=== PATIENT | female | born 2000 | race Hispanic/Latino ===

== ENCOUNTER 2019-03-20 21:50 | Day surgery (SDC) | payer OTHER ==
[2019-03-20 22:21] VITALS: BP 108/67; TEMP 98.9; BMI 19.1
--- NOTE | 2019-03-21 00:26 | PDOC.LDHP ---
Labor and Delivery H&P Chief complaint: decreased movement HPI: 18 yo G1 at 25.0 by LMP here with complaint of decreased movement for a 4 hour period while driving back from [place]. She denies associated bleeding, discharge, cramping, LOF. She states that she tried eating and drinking, but without result of movement. Current gestational age (weeks): 25 Dating criteria: last menstrual period Grav: 1 Para: 0 Current complications: none Abnormal US findings: No Current medications: pre-gregor vitamins Allergies/Adverse Reactions: Allergies Allergy/AdvReac Type Severity Reaction Status Date / Time No Known Allergies Allergy Verified 03/20/19 22:18 Social history: none - Physical Exam Vital signs reviewed and normal: yes General: NAD Heart: RRR Lungs: CTAB Abdomen: gravid Extremeties: no edema FHT: category 1 [place] contractions every: rare - OB Labs Blood type: unknown RH: unknown Antibody Screen: unknown HIV: unknown RPR: unknown HEPSAg: unknown 1 hour GCT: unknown GBS: unknown - Assessment 2T , not in labor. Normal strip. - Plan -: FHT is WNL, no decelerations. While being monitored movement was noted by mother. Plan to dc home. Return precautions given. Follow up as scheduled with Dr Solitario next week. Addendum - Attending - Attending Attestation Date/Time: 03/21/19 6858 I personally evaluated the patient and discussed the management with Dr. Saucedo. I agree with the History, Examination, Assessment and Plan documented above.
== END 2019-03-20 23:20 | disposition home or self-care (01) ==
LOC: L&D/OP 21:50
PROVIDERS: ATTEND Obstetrics & Gynecology
DX: O36.8120 Decreased fetal movements, second trimester, not applicable or unspecified (principal); Z3A.25 25 weeks gestation of pregnancy

== ENCOUNTER 2019-06-28 12:26 | Inpatient (IN) | payer OTHER ==
[2019-06-28] MEDS ORDERED: Butorphanol Tartrate 1 MG/ML VIAL SLOW IVP PRN (13:05)
[2019-06-28] MEDS ORDERED: hydrALAZINE 20 MG/ML VIAL SLOW IVP PRN (13:05)
[2019-06-28] MEDS ORDERED: Promethazine HCl 25 MG/ML VIAL IM PRN ×3 (13:05→21:58)
[2019-06-28] MEDS ORDERED: Ondansetron PF 4 MG/2 ML Vial IVP PRN ×3 (13:05→21:58)
[2019-06-28 13:31] VITALS: BMI 21.7
--- NOTE | 2019-06-28 13:34 | PDOC.FPROB ---
FMR OB H&P: HPI - History of Present Illness Chief Complaint: CTX Indentification: G1 History of Present Illness: Patient is a 19 y/o G1 female at 39.2W EGA by 1st Trimester US who presents to L&D for evaluation of suspected contractions. She states that the contractions began earlier this morning and have increased in intensity and frequency, occurring Q2-4M at the time of presentation. Patient denies any loss of movement or loss of fluids, as well as any recent trauma, dysuria, illness or sick contacts, LEWIS, visual disturbances, N/V, CP, SOB or peripheral edema. Patient states that her course has been unremarkable and that she has had consistent care. Primary Care Physician: [facility] - Krista Solitario MD FMR OB H&P: Current - Care : 1 Para: 0 Gestational age: 39.2 Due date: 07/03/2019 Dating Criteria: LMP c/w 9.5 wk sono - OB Labs Blood type: O RH: positive Antibody Screen: negative HIV: negative RPR: negative HepBsAg: negative Rubella: immune Gonorrhea: negative Chlamydia: negative 1 hour gtt: 110 GBS: negative FMR OB H&P: History - Past Medical History PMH: None - OB History OB History: Anemia of - Surgical History Sx History: None - Social History Social History: Denies x3 - Family History Family History: Mother (HTN) - No Hx of DM2 FMR OB H&P: Medications - Current Home Medications: Medication Instructions Recorded Confirmed Type No Known 03/20/19 06/29/19 History Allergies/Adverse Reactions: Allergies Allergy/AdvReac Type Severity Reaction Status Date / Time No Known Allergies Allergy Verified 03/20/19 22:18 FMR OB H&P: ROS - Review of Systems General: denies: fever/chills Eyes: denies: vision changes ENT: denies: rhinorrhea, frequent nose bleed Cardiovascular: denies: chest pain, edema Respiratory: denies: cough, shortness of breath Gastrointestinal: denies: nausea, vomiting, diarrhea, constipation Genitourinary (Female): reports: contractions. denies: dysuria, hematuria, vaginal discharge Neurologic: denies: syncope, loss of counsciousness, headache Integumentary: denies: itching, lesions Psychological: reports: anxiety FMR OB H&P: Vital Signs - Heart Tones Baseline: 150 Variability: moderate Acceleration: absent Deceleration: absent Category: category 1 [place] contractions every: 2-3 min FMR OB H&P: Physical Exam - Physical Exam General: other (Breathing through contractions) HEENT: normocephalic and atraumatic, PERRLA, EOMI, MMM, conjunctiva clear, no scleral icterus, grossly normal vision, grossly normal hearing, normal nasal mucosa, oropharynx clear Neck: supple, FROM, trachea midline, no LAD Chest: non-tender to palpation, no lesions Breast: symmetric Heart: RRR, normal S1/S2, no murmurs/rubs/gallops, pulses present, no edema General: CTAB, no respiratory distress, good air movement, no rales/rhonchi, no wheezing, no retractions Abdomen: gravid, non-tender, no masses Musculoskeletal: pulses present, FROM in all four extremities, no misalignment/ asymmetry Neurological: no tremor, no focal deficit Skin: no rash, no jaundice Lymphatic: no unusual bruising or bleeding, no purpura, no petechia Psychiatric: intact recent and remote memory, normal mood and affect - Pelvic Exam SVE: Presentation: Vertex FMR OB H&P: A/P - Problem List (1) Intrauterine Current Visit: Yes Status: Acute Code(s): Z34.90 - ENCNTR FOR SUPRVSN OF NORMAL , UNSP, UNSP TRIMESTER Disposition: Patient is a 19 y/o G1 who presents to L&D for evaluation of contractions. 1. SIUP, Active Labor -Unremarkable course -GBS: Negative -Maternal VSS -Contractions Q2-4M -Category 1 Strip, no evidence of decelerations -SVE (1300) -Vertex presentation confirmed via bedside US -Patient desires epidural - Anesthesia notified 2. Anemia of -Labs pending PCP: [facility] - Krista Solitario MD Diet: NPO Fluids: LR @ 125 ml/hr Dispo: Patient is currently stable and admitted to L&D for active management of labor. Continue with maternal and monitoring and perform SVE Q2H. Discussion: Date/Time: 06/28/19 8099 This H&P was discussed with [] and [] who agree with the above documentation and plan. Addendum - Attending - Attending Attestation Date/Time: 06/29/19 0804 I personally evaluated the patient and discussed the management with Dr. Harman yesterday afternoon. I agree with the History, Examination, Assessment and Plan documented above with any addition or exceptions noted below.
[2019-06-28 13:41] LABS: Hemoglobin 11.8 g/dL (12.0-16.0); Mean Corpuscular HGB CONC 33.9 g/dL (32.0-36.0); Mean Corpuscular Hemoglobin 26.9 pg (27.0-31.0); Mean Corpuscular Volume 79.3 fL (78.0-98.0); Mean Platelet Volume 8.8 fL (7.4-10.4); Platelet Count 252 thou/uL (130-400); RBC Distribution Width 13.8 % (11.5-14.5); Red Blood Cell (RBC) Count 4.39 mill/uL (4.20-5.40); White Blood Cell (WBC) Count 13.6 thou/uL (4.8-10.8)
[2019-06-28] MEDS ORDERED: Fentanyl 4 mcg/Bup 0.1% Cadd 100 ML ONE (14:07)
[2019-06-28 14:25] LABS: HBSAg Index 0.28 S/CO (0-0.99); Hep B Surf Ag Non-Reactive S/CO (NonReactive)
[2019-06-28 14:30] LABS: Syphilis Antibody Nonreactive (Nonreactive); Syphilis Antibody Index 0.06 S/CO (<1.00 Non-Reactive)
[2019-06-28] MEDS ORDERED: Lactated Ringer's 500 ML IV PRN (14:48)
[2019-06-28] MEDS ORDERED: Acetaminophen 325 MG TAB PO PRN (14:48)
[2019-06-28] MEDS ORDERED: EPHEDRINE 25 MG/5 ML SYRINGE SLOW IVP PRN (14:48)
[2019-06-28] MEDS ORDERED: Naloxone HCl 0.4 mg/ml Vial IVP PRN ×4 (14:48→21:58)
[2019-06-28] MEDS ORDERED: diphenhydrAMINE 50 MG/ML VIAL IVP PRN ×2 (14:48→21:58)
[2019-06-28] MEDS ORDERED: Communication Order-Pharmacy FS SCH ×2 (15:00→22:00)
[2019-06-28] MEDS ORDERED: Fentanyl 4 mcg/Bupivacaine 0.1% Cassette 100 ML EPIDURAL SCH (15:00)
--- NOTE | 2019-06-28 15:26 | PDOC.LDPN ---
Labor & Delivery Progress Note - Subjective Subjective: comfortable - Objective Vital signs reviewed and normal: yes General: NAD Uterine fundus: non tender SVE: 1515 Dilation: 6 Effacement: 75% Station: 0 FHT: category 1 [place] contractions every: Q3M - Assessment (1) Intrauterine Code(s): Z34.90 - ENCNTR FOR SUPRVSN OF NORMAL , UNSP, UNSP TRIMESTER Current Visit: Yes Status: Acute Plan: continue plan of care -: Labor Check - 1515 Patient is a 19 y/o G1 who presents to L&D for evaluation of contractions. 1. SIUP, Active Labor -Unremarkable course -GBS: Negative -Maternal VSS -Contractions Q3M -Category 1 Strip, no evidence of decelerations -Membranes intact -SVE (1300): 680/0 -SVE (1515): 6/80/0 -Vertex presentation confirmed via bedside US -Epidural in place - pain is currently well-controlled 2. Anemia of -Labs pending PCP: [facility] - Krista Solitario MD Diet: NPO Fluids: LR @ 125 ml/hr Dispo: Patient is currently stable and admitted to L&D for active management of labor. Continue with maternal and monitoring and perform SVE Q2H. Addendum - Attending - Attending Attestation Date/Time: 06/29/19 4453 I personally evaluated the patient and discussed the management with Dr. Harman yesterday afternoon. I agree with the History, Examination, Assessment and Plan documented above with any addition or exceptions noted below.
--- NOTE | 2019-06-28 17:00 | PDOC.LDPN ---
Labor & Delivery Progress Note - Subjective Subjective: comfortable - Objective Vital signs reviewed and normal: yes General: NAD, resting Uterine fundus: non tender Dilation: 7 Effacement: 75% Station: 0 FHT: category 1, late decelerations (3 Late Decelerations within past 60M - resolved following repositioning and fluid bolus), variability present [place] contractions every: 3-5M AROM: clear fluid - Assessment (1) Intrauterine Code(s): Z34.90 - ENCNTR FOR SUPRVSN OF NORMAL , UNSP, UNSP TRIMESTER Current Visit: Yes Status: Acute Plan: continue plan of care, other -: Labor Check - 1700 Patient is a 19 y/o G1 who presents to L&D for evaluation of contractions. 1. SIUP, Active Labor -Unremarkable course -GBS: Negative -Maternal VSS -Contractions Q3-5M -Category 1 Strip - several remote late decelerations that resolved w/ repositioning and fluid bolus -AROM (1700): Clear fluid, no evidence of cord prolapse -SVE (1300): 6/80/0 -SVE (1515): 6/80/0 -SVE (1700): 7/80/0 -Vertex presentation confirmed via bedside US -Epidural in place - pain is currently well-controlled 2. Anemia of -Labs pending PCP: [facility] - Krista Solitario MD Diet: NPO Fluids: LR @ 125 ml/hr Dispo: Patient is currently stable and admitted to L&D for active management of labor following successful AROM. Continue with maternal and monitoring and perform SVE Q2H. Expected LOS > 48H Addendum - Attending - Attending Attestation Date/Time: 06/29/19 4493 I personally evaluated the patient and discussed the management with Dr. Harman yesterday afternoon. I agree with the History, Examination, Assessment and Plan documented above with any addition or exceptions noted below.
--- NOTE | 2019-06-28 20:18 | PDOC.LDPN ---
Labor & Delivery Progress Note - Subjective Subjective: comfortable - Objective Vital signs reviewed and normal: yes General: NAD, resting, breathing through contractions Uterine fundus: non tender SVE: 8/100/-1 @ 1830 Dilation: 8 Effacement: 100% Station: -1 FHT: late decelerations (position changes to right lateral & IVF bolus of 300 mL NS given) [place] contractions every: 2 min Resuscitative measures: maternal IV fluids, maternal position change - Assessment (1) Intrauterine Code(s): Z34.90 - ENCNTR FOR SUPRVSN OF NORMAL , UNSP, UNSP TRIMESTER Current Visit: Yes Status: Acute Plan: continue plan of care, resuscitative measures -: Labor Check - 1829 Patient is a 19 y/o G1 who presents to L&D for evaluation of contractions. 1. SIUP, Active Labor -Unremarkable course -GBS: Negative -Maternal VSS -Contractions Q2-3M -Category 1 Strip - 3 recurrent late decelerations that resolved w/ repositioning and fluid bolus -will continue to monitor strip closely with next check in about 1 hour -discussed next steps with patient including C/S if late decelerations recur and not responsive to resuscitative measures -AROM (1700): Clear fluid, no evidence of cord prolapse -SVE (1300): 6/80/0 -SVE (1515): 6/80/0 -SVE (1700): 7/80/0 -SVE (1830): 8/100/-1 -Vertex presentation confirmed via bedside US -Epidural in place - pain is currently well-controlled 2. Anemia of -H/H 11.8/34.8 PCP: LESVIA Solitario MD Diet: NPO Fluids: LR @ 125 ml/hr Dispo: Patient is currently stable and admitted to L&D for active management of labor following successful AROM. Continue with maternal and monitoring and perform next SVE in about 1 hour. Expected LOS > 48H. Addendum - Attending - Attending Attestation Date/Time: 06/28/192133 I personally evaluated the patient and discussed the management with Dr. Zhou and team. I agree with the History, Examination, Assessment and Plan documented above with any addition or exceptions noted below.
--- NOTE | 2019-06-28 20:24 | PDOC.LDPN ---
Labor & Delivery Progress Note - Subjective Subjective: comfortable - Objective Vital signs reviewed and normal: yes General: NAD, resting, breathing through contractions Uterine fundus: non tender SVE: 10 with anterior lip/100/+1 Dilation: 10 (anterior lip) Effacement: 100% Station: 1+ FHT: category 1, late decelerations, variability present [place] contractions every: 2 min Other exam findings: bloody show with check Resuscitative measures: maternal oxygen, maternal IV fluids, maternal position change - Assessment (1) Intrauterine Code(s): Z34.90 - ENCNTR FOR SUPRVSN OF NORMAL , UNSP, UNSP TRIMESTER Current Visit: Yes Status: Acute Plan: continue plan of care, resuscitative measures -: Labor Check - 1944 Patient is a 19 y/o G1 who presents to L&D for evaluation of contractions. 1. SIUP, Active Labor -Unremarkable course -GBS: Negative -Maternal VSS -Contractions Q2-3M -Category 1 Strip - 1 late decelerations that resolved w/ repositioning to right lateral and applying maternal oxygen -will continue to monitor strip closely with next check in about 30-60 min -discussed next steps with patient including C/S if late decelerations recur and not responsive to resuscitative measures -AROM (1700): Clear fluid, no evidence of cord prolapse -SVE (1300): 6/80/0 -SVE (1515): 6/80/0 -SVE (1700): 7/80/0 -SVE (1830): 8/100/-1 -SVE (1944): 10/100/+1 slight anterior lip on exam, placed patient sitting upright (as long as baby tolerates) -Vertex presentation confirmed via bedside US -Epidural in place - pain is currently well-controlled 2. Anemia of -H/H 11.8/34.8 PCP: LESVIA Solitario MD Diet: NPO Fluids: LR @ 125 ml/hr Dispo: Patient is currently stable and admitted to L&D for active management of labor following successful AROM. Continue with maternal and monitoring and perform next SVE in about 30-60 min. Expected LOS > 48H. Addendum - Attending - Attending Attestation Date/Time: 06/28/19 2892 I personally evaluated the patient and discussed the management with Dr. Zhou. I agree with the History, Examination, Assessment and Plan documented above with any addition or exceptions noted below. See my next note.
[2019-06-28] MEDS ORDERED: NS / Oxytocin 40 units/1000ml 1,000 ML ONE (21:15)
[2019-06-28] MEDS ORDERED: Lidocaine 1% (PF) 30 ML VIAL ONE (21:15)
[2019-06-28] MEDS ORDERED: Bicitra 30 ML UDCUP ONE (21:49)
[2019-06-28] MEDS ORDERED: Promethazine HCl 25 MG SUPP PR PRN (21:58)
[2019-06-28] MEDS ORDERED: Ondansetron HCl/PF 4 MG/2 ML Vial IVP PRN (21:58)
[2019-06-28] MEDS ORDERED: Meperidine HCl/PF 25 MG/ML VIAL SLOW IVP PRN (21:58)
[2019-06-28] MEDS ORDERED: L&D-Morphine 4 MG/ML VIAL SLOW IVP PRN (21:58)
[2019-06-28] MEDS ORDERED: Naloxone HCl 0.4 mg/ml Vial IV PRN (21:58)
[2019-06-28] MEDS ORDERED: HYDROmorphone 2 MG/ML VIAL SLOW IVP PRN (21:58)
--- NOTE | 2019-06-28 21:58 | PDOC.LDPN ---
Labor & Delivery Progress Note - Subjective Subjective: comfortable - Objective Vital signs reviewed and normal: yes General: NAD, resting SVE: AL with mild edema/c/0 FHT: category 2 (Test pushing was performed prior to my arrival with a prolonged decel. Baby subsequently recovered to BL 160's, mod bessie, with recurrent lates) - Assessment (1) Intrauterine Code(s): Z34.90 - ENCNTR FOR SUPRVSN OF NORMAL , UNSP, UNSP TRIMESTER Current Visit: Yes Status: Acute Plan: other (In light of AL for a significant amount of time, intolerance of pushing and prior prolonged decel, and still with a potentially long second stage in light of exam and being a G1, I have recommende PLTCS. The patient voiced understanding, agreed with plan, and desires to proceed. Will proceed back urgently.)
[2019-06-28] MEDS ORDERED: Ketorolac Tromethamine 30 MG/ML VIAL IVP SCH (22:00)
[2019-06-28] MEDS ORDERED: Bicitra 30 ML UDCUP PO SCH (22:00)
[2019-06-28] MEDS ORDERED: Azithromycin 500 MG in Sodium Chloride 0.9% 250 ML 250 ML IVPB SCH (22:00)
[2019-06-28] MEDS ORDERED: Azithromycin 500 MG VIAL ONE (22:04)
[2019-06-28] MEDS ORDERED: CEFAZOLIN 2 GM in Premix Bag 1 BAG IVPB SCH (22:15)
[2019-06-28] MEDS ORDERED: Bupivacaine/Epinephrine 0.5% 10 ML VIAL ONE ×2 (22:24→22:38)
[2019-06-28] MEDS ORDERED: Terbutaline Sulfate 1 MG/ML VIAL ONE (22:27)
[2019-06-28] MEDS ORDERED: Fentanyl 100 MCG/2 ML VIAL ONE (22:30)
[2019-06-28] MEDS ORDERED: Methylergonovine 0.2 MG/ML VIAL ONE (22:42)
[2019-06-28] MEDS ORDERED: MORPHINE 5 MG/10 ML PF VIAL ONE (22:47)
[2019-06-28] MEDS ORDERED: Dexamethasone 4 mg/ml Vial ONE (22:47)
[2019-06-28] MEDS ORDERED: PHENYLEPHRINE-NS 100 MCG/ML 10 ML SYRINGE ONE (22:49)
[2019-06-28] MEDS ORDERED: Misoprostol 200 MCG TAB ONE (23:39)
[2019-06-28] MEDS ORDERED: Ondansetron PF 4 MG/2 ML Vial ONE (23:48)
[2019-06-29] MEDS ORDERED: NS / Oxytocin 40 units/1000ml 1,000 ML ONE (00:43)
[2019-06-29] MEDS ORDERED: Bisacodyl 10 MG SUPP PR PRN (01:35)
[2019-06-29] MEDS ORDERED: hydrALAZINE 20 MG/ML VIAL SLOW IVP PRN (01:35)
[2019-06-29] MEDS ORDERED: Lanolin Ointment 7 GM TUBE TOP PRN (01:35)
[2019-06-29] MEDS ORDERED: Milk Of Magnesia 30 ML UDCUP PO PRN (01:35)
--- NOTE | 2019-06-29 02:01 | OP ---
DATE OF PROCEDURE: 06/28/2019 RESIDENT SURGEONS: Krista Solitario MD, PGY2 and Víctor Roach MD, PGY3. ATTENDING SURGEON: Osman Choudhary MD PROCEDURES PERFORMED: Primary low-transverse . PREOPERATIVE DIAGNOSES: 1. Term intrauterine in labor. 2. Non-reassuring heart tones. POSTOPERATIVE DIAGNOSIS: Term intrauterine , delivered. ANESTHESIA: Epidural. INDICATIONS FOR PROCEDURE: The patient is a 19-year-old G1, P0 female at 39 and 2 weeks gestation. She presented in active labor and non-reassuring heart tones with deep variables and persistent late variables with an anterior lip that was becoming edematous. DESCRIPTION OF PROCEDURE: After risks, benefits, and alternatives were explained to the patient, she gave informed consent. Preoperative antibiotics included cefazolin 2 g IV and azithromycin 500 mg IV. The patient was taken to the operating room with epidural already in place per Anesthesia. She was placed in the supine position with left tilt and prepped and draped in the usual sterile fashion. A Pfannenstiel incision was made with a scalpel and carried down to the level of the fascia, which was sharply nicked. The fascia was cut and extended bilaterally with Saldana scissors. The inferior and superior edges of the cut fascial edges were elevated with Winifred clamps and underlying rectus muscles were sharply and bluntly dissected free. The recti were divided digitally and retracted manually. The peritoneum was entered bluntly and retracted manually. Bladder blade was placed. A low transverse score was made with a scalpel and the uterus was entered in the midline with a scalpel. Scant amount of clear fluid was seen. The patient had been ruptured prior to . The hysterotomy was extended manually. The was noted to be vertex and was delivered by fundal pressure. Mouth and nares were bulb suctioned. Cord was clamped and cut, and grossly normal male was handed to waiting nurse. Cord blood was obtained. Placenta was expectantly extracted and found to be intact with three-vessel cord and sent for pathology. The uterus was externalized, and endometrium was curetted with a dry lap. The bladder blade was placed and the uterus was closed with running locking 0 Monocryl followed by a running nonlocking 0 Monocryl imbricating suture. A [id number] was placed and following this, hemostasis was noted. The uterus was internalized and hysterotomy again noted to be hemostatic. Peritoneum was closed with 3-0 Vicryl. The fascia was closed with a running nonlocking 0 PDS suture. The subcutaneous tissue was irrigated and small bleeders became hemostatic after cauterization. The skin was approximated using Monocryl Wisam needle, followed by Dermabond. A dressing was placed. All counts were correct. The patient tolerated the procedure well and was taken to the recovery room in stable condition. Uterus was noted to be boggy in recovery room, patient was given Cytotec 800mg SD. QUANTITATIVE BLOOD LOSS: 775 mL. COMPLICATIONS: None. SPECIMENS: Cord blood sent to lab for blood type and placenta sent for pathology review. FINDINGS: 1. Grossly normal male with Apgars of 8 and 9. 2. Grossly normal placenta with three vessel cord, sent for pathology due to recurrent late and prolonged decelerations. DRAINS: [place] to gravity, draining clear urine. Job ID: [id number] Attending addendum: I was present and scrubbed for the entire procedure. Please note patient arrested at anterior lip and labor was unable to be augmented. Fetus was OP and asynclitic. MTDD
[2019-06-29] MEDS: Ketorolac Tromethamine 30 MG/ML VIAL IVP PRN ×2 (04:10→11:18)
--- NOTE | 2019-06-29 06:24 | PDOC.BPN ---
- Brief Progress Note Post-Op Note: Pt is doing well. Pain well controlled / currently. Mahmood in place. Passing gas. Nursing staff reports lochia wnl. VS wnl. IO: 870ml at recovery, since then 650ml PE: Gen: NAD Heart: RRR, no murmurs Lungs: CTAB, no increased work of breathing : mahmood in place, clear urine Abd: uterine fundus appropriately tender, firm 2 below umbilicus Ext: mild edema Pt doing well. Continue routine post care.
[2019-06-29 07:08] LABS: Hemoglobin 8.3 g/dL (12.0-16.0); Mean Corpuscular HGB CONC 33.2 g/dL (32.0-36.0); Mean Corpuscular Hemoglobin 26.9 pg (27.0-31.0); Mean Corpuscular Volume 81.1 fL (78.0-98.0); Mean Platelet Volume 8.6 fL (7.4-10.4); Platelet Count 172 thou/uL (130-400); White Blood Cell (WBC) Count 22.6 thou/uL (4.8-10.8)
--- NOTE | 2019-06-29 07:22 | PDOC.PP ---
Post Progress Note Post Day #: 1 Subjective: 19yo now delivered pLTCS for NRFHTs. Pain well controlled. Tolerating clears with plan to advance diet today. Mahmood still in place. Has not ambulated as of yet. Denies weakness, dizziness, lightheadedness or chest pain. Desires to breastfeed however struggling with latch. No BM as of yet. PO intake tolerated: yes Flatus: no Ambulation: no Vital Signs (12 hours) Temp Pulse Resp BP Pulse Ox 06/29/19 03:50 98.5 F 101 H 14 130/85 99 06/29/19 02:50 98.8 F 112 H 14 131/83 100 06/29/19 01:40 98.2 F 94 14 132/71 99 Weight Weight 52.163 kg - Physical Examination General: NAD Cardiovascular: no m/r/g, RRR Respiratory: clear to auscultation bilaterally Abdominal: + bowel sounds, lochia (minimal) Fundus firm & at: umbilicus Deviation from normal: CS incision covered with dressing Neurological: no gross focal deficits Psychiatric: A&Ox3, normal affect Result Diagrams: 06/29/19 06:29 Additional Labs: Post Labs Blood Type O POSITIVE 06/28/19 14:06 Hep Bs Antigen Non-Reactive S/CO (NonReactive) 06/28/19 13:19 - Assessment/Plan Term , delivered - Pain well controlled. Continue routine PP care with plan to remove mahmood and advance diet today. Encouraged ambulation. Educated on , also has consult placed. Will have breast pump placed in room. Anemia of - Hgb 11.8-> 8.3 - QBL 775 - Received cytotec after delivery as uterus was boggy. Currently firm at umbilicus with minimal lochia overnight and benign abdominal exam. Pt asymptomatic. Will continue to monitor. Addendum - Attending - Attending Attestation Date/Time: 06/29/19 1700 I personally evaluated the patient and discussed the management with Dr. Solitario this morning. I agree with the History, Examination, Assessment and Plan documented above with any addition or exceptions noted below.
[2019-06-29] MEDS ORDERED: Adacel (T-DAP) 0.5 ML SYRINGE IM ONE (09:00)
[2019-06-29] MEDS ORDERED: Polyethylene Glycol 3350 17 GM Packet PO SCH (09:00)
[2019-06-29] MEDS: Prenatal Vitamin 1 TAB PO SCH (09:15)
[2019-06-29] MEDS: Docusate Calcium (SURFAK) 240 MG CAP PO SCH ×2 (10:08→21:32)
[2019-06-29] MEDS ORDERED: Acetaminophen 500 MG TAB PO PRN (11:35)
[2019-06-29] MEDS: HYDROcodone/Acetaminophen 5/325 mg Tablet PO PRN ×2 (15:36→21:32)
[2019-06-29] MEDS ORDERED: Ferrous Sulfate 325 MG TAB PO SCH (17:00)
[2019-06-30] MEDS: HYDROcodone/Acetaminophen 5/325 mg Tablet PO PRN ×3 (01:53→18:33)
[2019-06-30] MEDS: Ibuprofen 800 MG TAB PO SCH ×2 (06:26→14:10)
--- NOTE | 2019-06-30 07:34 | PDOC.PP ---
Post Progress Note Post Day #: 2 Subjective: Pain well controlled. Ambulating, passing gas, tolerating regular diet. Does need some assistance with . Otherwise doing well. PO intake tolerated: yes Flatus: yes Ambulation: yes Vital Signs (12 hours) Temp Pulse Resp BP Pulse Ox 06/30/19 04:32 98.0 F 81 16 112/72 99 06/30/19 00:34 98.2 F 84 16 131/76 98 Weight Weight 52.163 kg - Physical Examination General: NAD Cardiovascular: no m/r/g, RRR Respiratory: clear to auscultation bilaterally, non-labored breathing Abdominal: + bowel sounds, appropriately TTP Skin: CS incision dry & intact Neurological: no gross focal deficits Psychiatric: A&Ox3, normal affect Result Diagrams: 06/29/19 06:29 Additional Labs: Post Labs Blood Type O POSITIVE 06/28/19 14:06 Hep Bs Antigen Non-Reactive S/CO (NonReactive) 06/28/19 13:19 - Assessment/Plan Term , delivered - Meeting PP milestones - Pending eval - If baby's bili comes back wnl she can likely dc later today Anemia of - Hgb 11.8-> 8.3 - QBL 775 - Continue iron Addendum - Attending - Attending Attestation Date/Time: 06/30/19 1211 I personally evaluated the patient. I agree with the History, Examination, Assessment and Plan documented above with any addition or exceptions noted below.
[2019-06-30] MEDS ORDERED: Ferrous Sulfate 325 MG TAB PO SCH (08:00)
[2019-06-30 08:11] VITALS: TEMP 97.9
[2019-06-30] MEDS: Docusate Calcium (SURFAK) 240 MG CAP PO SCH (09:21)
[2019-06-30] MEDS: Prenatal Vitamin 1 TAB PO SCH (09:21)
[2019-06-30 16:32] VITALS: BP 111/62
--- NOTE | 2019-07-01 18:45 | PQF ---
[employer] Crystal Reports Winform Viewer CLARA FULLER GABRIEL MD [id number] CLINICAL DOCUMENTATION CLARIFICATION FORM: POST DISCHARGE Addendum to original discharge summary date: ____ Late entry note date: __ DATE: 07/01/19 ATTN: Wil Milan Please exercise your independent, professional judgment in responding to the clarification form. Clinical indicators are provided on the bottom of this form for your review Can you please further clarify the specificity of Anemia? Please check appropriate box(s): [ ] Acute blood loss anemia [ ] Post-op anemia related to acute blood loss [ ] Iron Deficiency anemia [ ] Anemia unspecified [ ] Other diagnosis [ ] Unable to determine In addition, please specify: Present on Admission (POA): [ ] Yes [ ] No [ ] Unable to determine For continuity of documentation, please document condition throughout progress notes and discharge summary. Thank You. CLINICAL INDICATORS - SIGNS / SYMPTOMS / LABS H and P pg.2- Anemia of Laboratory- Hgb 11.8L, 8.3L Laboratory- Hct: 34.8L, 25.1L OP report Pg.1- Primary low transverse CS OP report pg.2- Quantitative blood loss: 775ml PN - denies weakness, dizziness, lightheadedness or chest pain RISK FACTORS 19 years old 39W EGA- H and P pg.1 Non reassuring heart tone- OP report pg.1 TREATMENTS: H/H monitoring- Laboratory I and O monitoring IV fluids- MAR Ferrous sulfate 325mg PO- MAR (This form is maintained as a part of the permanent medical record) 2014 [email or web address] Application. All Rights Reserved [email or web address] Please re-assign to resident physician for completion. HARRY
--- NOTE | 2019-07-06 06:33 | PQF ---
CLARA FULLER, KRISTA kemp [id number] CLINICAL DOCUMENTATION CLARIFICATION FORM: POST DISCHARGE Addendum to original discharge summary date: ____ Late entry note date: __ DATE: 07/07/19 ATTN: Krista Solitario, Please exercise your independent, professional judgment in responding to the clarification form. Clinical indicators are provided on the bottom of this form for your review Can you please further clarify the specificity of Anemia? Please check appropriate box(s): [ ] Acute blood loss anemia [ x ] Post-op anemia related to acute blood loss vs dilutional anemia [ ] Iron Deficiency Anemia [ ] Anemia unspecified [x ] Other diagnosis Anemia of [ ] Unable to determine In addition, please specify: Present on Admission (POA): [ ] Yes [ ] No [ ] Unable to determine For continuity of documentation, please document condition throughout progress notes and discharge summary. Thank You. CLINICAL INDICATORS - SIGNS / SYMPTOMS / LABS Anemia of - H & P, page 2 HGB-11.8L, 8.3 L--Laboratory HCT-34.8L, 25.1L--Laboratory "Primary low transverse CS"--OP report page 1 "Quantiative blood loss: 775 ml"-OP report page 2 "denies weakness, dizziness, lightheadness or chest pain"-- Progress note RISK FACTORS 19 years old 37 [address] EGA--H&P--page 1 Non reassuring heart tone-OP report page 1 "Primary low transverse CS"--OP report page 1 TREATMENTS: H/H monitoring-Labarotory I and O monitoring IV fluids--MAR Ferrous sulfate 325mg PO-MAR Thank you, Bere Quezada, CCS (This form is maintained as a part of the permanent medical record) 2014 [employer]. All Rights Reserved Bere [email or web address] [phone] HARRY
== END 2019-06-30 18:45 | disposition home or self-care (01) | DRG 787 ==
LOC: L&D/OP 12:26 → L&D 13:04 → 3SE 06-29 02:03
PROVIDERS: ADMIT Family Medicine; ATTEND Family Medicine
PROC: 10D00Z1 Extraction of Products of Conception, Low, Open Approach (ICD-10-PCS; principal; 2019-06-28)
PROC: 10907ZC Drainage of Amniotic Fluid, Therapeutic from Products of Conception, Via Natural or Artificial Opening (ICD-10-PCS; 2019-06-28)
DX: O76 Abnormality in fetal heart rate and rhythm complicating labor and delivery (principal); D62 Acute posthemorrhagic anemia; O32.4XX0 Maternal care for high head at term, not applicable or unspecified; O99.03 Anemia complicating the puerperium; Z3A.39 39 weeks gestation of pregnancy; Z37.0 Single live birth
CPT/HCPCS: 36415; 51702; 85027; 86780; 86850; 86900; 86901; 87340; 88307; 99285; J0456; J0690; J1100; J1885; J2001; J2210; J2274; J2405; J3010; J3105; J3490